=== PATIENT | male | born 1945 | race Caucasian/White ===

== ENCOUNTER 2018-04-21 09:26 | Outpatient (CLI) | payer MEDICARE | END 2018-04-21 09:27 | disposition home or self-care (01) | LOC: RAD 09:26 ==

== ENCOUNTER 2018-06-23 09:34 | Outpatient (CLI) | payer MEDICARE, MEDICAID | END 2018-06-23 09:35 | disposition home or self-care (01) | LOC: RAD 09:34 ==

== ENCOUNTER 2018-06-30 07:37 | Outpatient (CLI) | payer MEDICARE, MEDICAID | END 2018-06-30 07:38 | disposition home or self-care (01) | LOC: RAD 07:37 ==